=== PATIENT | female | born 1995 | race Caucasian/White ===

== ENCOUNTER → 2017-02-02 04:41 | Observation (INO) ==
--- NOTE | 2017-02-02 07:50 | Discharge Summary ---
Date of Encounter: 02/02/17 Time of Encounter: 07:53 - Discharge Diagnosis (1) 39 weeks gestation of Priority: Primary Status: Acute Comments: false labor discharge home follow up as scheduled. (2) False labor Priority: Secondary Status: Acute Comments: reactive NST baseline 125 bpm moderate variability +15x15 accels no decels noted. No cervical change - Discharge Medications Home Medications: Vit/Iron Fumarate/FA [ Tablet] 1 each PO DAILY 02/02/17 [ History] Allergies/Adverse Reactions: Allergies No Known Allergies Allergy (Verified 02/02/17 01:53) Date of admission: 02/02/17 01:35 Discharging clinician: Tika Cortez Anticipated date of discharge: 02/02/17 - Patient Status Disposition: Home, Self-Care Condition: Good Functional capacity at discharge: independent ambulation - Discharge Instructions Follow Up With: Mallorie Chavez MD [Partnered Physician] - Additional Instructions: LABOR AND DELIVERY DISCHARGE INSTRUCTIONS Signs and Symptoms to be Reported to your Doctor Immediately: * Sudden gush, continuous or intermittent lead of fluid from vagina (note the time of gush and color of fluid) * Onset of bright red vaginal bleeding with or without pain (if you had a vaginal exam during this visit you may notice some dark red spotting. This is normal.) * Contractions that are 5 minutes apart (from the beginning of one contraction to the beginning of the next) and last 45-60 seonds; contractions that you can no longer walk, talk or laugh through. * A change in the baby's activity. This could be an increase or decrease in activity. * Severe headache which does not go away with tylenol. * Sudden swelling in the face, hands, arms and/or legs. * Upper abdominal pain - sometimes associated with heartburn or nausea and is not relieved by Maalox, Mylanta or Tums. * Kick Counts __ One hour after a meal, lay down on one side in a quiet place. Count the number of time the baby moves during an hour. 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 Time Attestation: Total time spent providing and/or coordinating discharge services: Time Spent: Less than 30 minutes Exam - Other Additional findings: Patient was seen and assessed by RN. Patient reported regular contractions. Patient denies LOF or VB. Patient reported +FM. - VTE Reasons for not Prescribing Prophylaxis: Treatment not Indicated - Low risk for VTE
== END | disposition home or self-care (01) ==
LOC: 1NENULAB
PROVIDERS: ADMIT Advanced Practice Midwife; ATTEND Obstetrics & Gynecology

== ENCOUNTER 2017-02-06 02:46 | Inpatient (IN) ==
[2017-02-06] MEDS ORDERED: Metoclopramide 10 MG/2 ML VIAL IVP PRN (02:54)
[2017-02-06] MEDS ORDERED: Naloxone 0.4 MG/ML INJ IVP PRN (02:54)
[2017-02-06] MEDS ORDERED: Famotidine 20 MG/2 ML VIAL IVP PRN (02:54)
[2017-02-06] MEDS ORDERED: Ondansetron 4 MG/2 ML VIAL IVP PRN (02:54)
[2017-02-06] MEDS ORDERED: Penicillin G Potassium 5,000,000 UNIT in D5% in Water (Mini-Bag+) 100 ML IVPB ONE (02:54)
[2017-02-06] MEDS ORDERED: Ringers Solution, Lactated 1,000 ML IVC SCH (03:00)
[2017-02-06 03:24] LABS: Basophils # 0.1 K/mcL (0.0-0.2); Basophils % 0.6 %; Eosinophils # 0.2 K/mcL (0.0-0.6); Eosinophils % 1.4 %; Hematocrit 37.9 % (35.3-44.9); Hemoglobin 13.1 g/dL (11.5-15.4); Immature Granulocytes % 1.4 % (0-4); Lymphocytes # 2.4 K/mcL (0.6-4.6); Lymphocytes % 19.8 %; Mean Corpuscular HGB Conc 34.6 g/dL (31.6-35.5); Mean Corpuscular Hemoglobin 30.9 pg (28.0-33.3); Mean Corpuscular Volume 89.4 fL (83.0-100.0); Mean Platelet Volume 9.5 fL (9.4-12.4); Monocytes # 1.1 K/mcL (0.0-1.3); Monocytes % 9.5 %; Platelet Count 181 K/mcL (140-400); Red Blood Count 4.24 M/mcL (3.82-4.97); Red Cell Distribution Width 12.8 % (11.5-14.5); Segmented Neutrophils % 67.3 %
[2017-02-06] MEDS ORDERED: *HR* Nalbuphine 20 MG/ML AMPUL IVP PRN (03:32)
[2017-02-06] MEDS ORDERED: *HR* Nalbuphine 20 MG/ML AMPUL ONE (03:32)
[2017-02-06] MEDS ORDERED: *HR* Ropivacaine/PF 0.2% 10 ML AMPUL ONE (03:44)
[2017-02-06] MEDS ORDERED: *HR* FentaNYL (PF) 100 MCG/2 ML VIAL ONE (03:44)
[2017-02-06] MEDS ORDERED: Epidural Premix (fent/bupiv) 110 ML EP ONE (03:45)
--- NOTE | 2017-02-06 04:46 | Anesthesia Evaluation PreOp ---
Date of Encounter: 02/06/17 Time of Encounter: 03:51 - Past History Planned Operation: DAVI Cardiac History: Denies any Significant Hx Pulmonary History: Denies Any Significant HX COIN COLLECTOR History: Denies Any Significant HX Other Medical History: Denies Any Significant HX Anesthesia History: No Prior Anesthetic Complications (previous DAVI x 3; denies h/o complications w/ GA or NA; denies family h/o anesthesia complications), Past Anesthesia : Yes Test: Positive Alcohol Use: none Drug use: none Medications and Allergies Vit/Iron Fumarate/FA [ Tablet] 1 each PO DAILY 02/02/17 [ History] Allergies No Known Allergies Allergy (Verified 02/02/17 01:53) - Meds/Allergy Pre-op Review Medications Reviewed: Yes Allergies Reviewed: Yes Beta Blockers on Current Med List: No Anesthesia Results - Labs 02/06/17 03:10 Anesthesia Exam 138/75, HR109, RR16 Height: 1.65m Weight: 107.5kg NPO (# of Hours): solids > 8hr Pain Scale: 10 Pain Scale Used: Numeric (1 - 10) - HEENT Pupil (Motor): Pupils equal Mallampati: II Teeth: Normal Oral Opening: Greater than 3 - COIN COLLECTOR LOC: Oriented COIN COLLECTOR Motor: Normal RUE, Normal LUE, Normal RLE, Normal LLE, Normal Face COIN COLLECTOR Sensory: Normal: RUE, LUE, RLE, LLE, Face - Cardiac Rhythm: Regular Murmur: None - Pulmonary Breath Sounds: bilateral Clear Respiratory Effort: Symmetrical Anesthesia Assess/Plan ASA Score: 2 Modified Putney Scale for Level of Consciousness: Anixous, agitated or restless Anesthetic Plan: Regional Autologous Blood: No Monitoring Plan: Standard Monitors Recovery Plan: Other
[2017-02-06] MEDS ORDERED: *HR* FentaNYL (PF) 100 MCG/2 ML VIAL EP ONE (04:50)
[2017-02-06] MEDS ORDERED: *HR* Ropivacaine/PF 0.2% 10 ML AMPUL EP ONE (04:50)
--- NOTE | 2017-02-06 04:50 | Anesthesia Procedures ---
Date of Encounter: 02/06/17 Time of Encounter: 04:48 Procedures: Anesthesia - Epidural/Spinal Patient ID/Chart reviewed: Yes Patient examined: Yes OB Eval: Gestational age: 39 weeks 4 days OB Eval: : 4 OB Eval: Hx Para: 3 OB Eval: Dilated at (cm): 5 OB Eval: Contractions: Non-stressed pattern Consent Obtained: Yes Supplemental Oxygen: None/Room Air Site Prep: Aseptic Technique, Sterile prep and drape, Povidone-Iodine 1% Patient position: upright Local Anesthetic: Lidocaine 1% Amount of Local Anesthetic used: 8 Touhy Needle Gauge: 18 Touhy Needle Depth (cm): 7 Catheter Depth at Skin (cm): 12 Test Dose (1.5% Lido + Epi): Volume given (mls): 5 Test Dose Result: Negative Loading Dose: Fentanyl (mcg): 100 Loading Dose: Other: ropivicaine 0.2% 5mL Loading Dose Administered: Thru Catheter Infusion Med: 0.125% Bupivacaine w/ 2 mcg/ml Fentanyl Infusion Rate (mls/hr): 14 (w/ demand bolus of 4mL q20min PRN) Catheter Secured in Place: Tegaderm, Tape Interspace Used: L4-L5 Loss of Resistance (JEANNA): Yes Blood: No CSF: No Paresthesia: No Vitals + FHT's: please see Abril STILL's electronic documentation
[2017-02-06] MEDS ORDERED: Oxytocin 20 units/ LR 1000 mL 20 UNIT/1,000 ML BAG IVC ONE ×2 (04:59→08:26)
[2017-02-06] MEDS ORDERED: Epidural Premix (fent/bupiv) 110 ML EP SCH (05:00)
--- NOTE | 2017-02-06 06:23 | OB/GYN History & Physical ---
Date of Encounter: 02/06/17 Time of Encounter: 06:20 Assessment and Plan (1) and not yet delivered in third trimester Current visit: Yes Status: Acute (2) Active labor at term Current visit: Yes Status: Acute Anticipate normal spontaneous vaginal delivery (3) Spontaneous rupture of membranes Current visit: Yes Status: Acute (4) Positive GBS test Current visit: Yes Status: Acute will start antibiotics (5) 39 weeks gestation of Current visit: No Status: Acute History of Present Illness HPI: Ms. Davila is a 21 year old female 4 para 3 at 39-4/7 weeks who presented to labor and delivery in active labor with spontaneous rupture membranes. Patient had called yesterday stating she was having some vaginal spotting and contractions again low but more comfortable. Patient was advised to stay home until she did not tolerate them. Patient states she went to bed had a gush of fluid and then contractions became significantly intense. Upon arrival to labor and delivery patient was nitrazine negative however she was 5 cm. Patient was getting more uncomfortable and while getting epidural she had another gush of fluid. Patient GBS status is positive penicillin was started she is Rh+ rubella positive. Past Med Surg Social Fam HX - Past Medical History Medical history: no medical history Psychiatric history: no psych history - Past Surgical History Surgical History: other (Tonsils and adenoids) - Social History Smoking Status: Never smoker Smokeless Tobacco Status: No Alcohol use: none Drug use: none Occupational status: unemployed Current living situation: Home - Independent Recent Out of Country Travel Within the Last 8 Weeks: No Exposure or Possible Exposure to Illness During Travel: No - Family History Mother Living Status: Age at : 36 Cause of : drug OD Hx Family Cardiac Disorders: Yes (HTN) Hx Family Respiratory Disorders: Yes (Asthma) Hx Family Cancer: No Hx Family GI Disorders: No Hx Family Genitourinary Disorders: No Hx Family Endocrine Disorder: No Hx Family Musculoskeletal Disorders: No Hx Family Neuromuscular Disorders: No Hx Family Neurologic Disorders: No Hx Family HEENT Disorders: No Hx Family Autoimmune Disorders: No Hx Family Reproductive Disorders: No Hx Family Psychosocial Disorders: No Hx Family Medical Disorders: No - Additional Family History Additional family history: Family history noncontributory Obstetrical History - Pregnancies : 4 Para: 3 Term: 3 Livin Medications and Allergies Vit/Iron Fumarate/FA [ Tablet] 1 each PO DAILY 02/02/17 [ History] Allergies No Known Allergies Allergy (Verified 02/02/17 01:53) Review of System OB All systems PM: reviewed and no additional remarkable complaints except as stated Exam - Constitutional Constitutional: well developed, well nourished, no acute distress, mild distress , obese - HEENT HEENT: EOMI, PERRL - Neck Neck exam: full ROM - Lungs Respiratory exam: CTAB - Abdomen Abdomen: Present: bowel sounds normal, gravid - Cervix Dilation: 5 Effacement: 90 Station: -1 Results Result Diagrams: 02/06/17 03:10 Abnormal lab results WBC 11.9 K/mcL (4.3-11.1) H 02/06/17 03:10 All other labs normal. - VTE Reasons for not Prescribing Prophylaxis: Treatment not Indicated - Low risk for VTE
--- NOTE | 2017-02-06 06:30 | OB/GYN Procedure Note ---
Delivery - Delivery Date: 02/06/17 Provider: Reza Salazar Intrapartum events: none Delivery induction: none Delivery monitor: external FHT, external uterine Anesthesia: epidural Estimated Blood Loss: 100 - Infant (s) Infant A Infant Delivery Date: 02/06/17 Infant Delivery Time: 06:05 Presentation: vertex Position: GLENIS Route of delivery: Gender: Female Viability: Viable Pounds: 8 Ounces: 4 Weight Gram: 3.745 kg at 1 minute: 8 at 5 mins: 9 Shoulder Dystocia: not encountered Specimens collected: cord blood Placenta: spontaneous Cord: 3 umbilical vessels - Repair Episiotomy: none Laceration Description: None - Complications Delivery complications: none Delivery comments: Patient is a 21-year-old 4 para 3 at 39-4/7 weeks who presented to labor and delivery in active labor with spontaneous rupture membranes. Patient was 5 cm on admission ash every 2 minutes. Patient did receive an epidural and antibiotics for group B strep positive. Patient progressed to complete patient pushed 1-3 times delivering a viable female in right occiput anterior presentation at 0605. There was no nuchal cord, no meconium, was bulb suctioned on the abdomen. Apgars were 8 at 1 minute, 9 at 5 minutes, weight was 8 lbs. 4 oz. Placenta was then delivered spontaneously with a three-vessel cord, business office associate at [place], anesthesia epidural, estimated blood loss 100 mL. Perineum cervix and vagina was visualized intact. Patient will be observed 2 hours before being taken floor. All needles and sponge counts were correct 2. - Disposition Mom disposition: stable in LDR [place] disposition: stable in LDR
[2017-02-06] MEDS ORDERED: Penicillin G Potassium 2,500,000 UNIT in D5% in Water 100 ML IVPB SCH (07:00)
[2017-02-06] MEDS ORDERED: Oxytocin 20 units/ LR 1000 mL 20 UNIT/1,000 ML BAG IVC SCH (08:51)
[2017-02-06] MEDS ORDERED: Measles/Mumps/Rubella Vacc 0.5 ML VIAL SQ PRN (08:51)
[2017-02-06] MEDS ORDERED: Acetaminophen 325 MG TABLET PO PRN (08:51)
[2017-02-06] MEDS ORDERED: Prenatal Vit/FA 1 EACH TABLET PO SCH (09:00)
[2017-02-06] MEDS ORDERED: NON-FORMULARY MEDICATION 1 EACH EACH (Prenatal Vit/Iron Fumarate/Fa [Prenatal Tablet] 1 EA PO SCH (09:00)
[2017-02-07] MEDS: Ibuprofen 600 MG TABLET PO PRN ×2 (02:36→11:06)
[2017-02-07 04:43] LABS: Basophils # 0.1 K/mcL (0.0-0.2); Basophils % 0.6 %; Eosinophils # 0.2 K/mcL (0.0-0.6); Eosinophils % 1.5 %; Hematocrit 33.6 % (35.3-44.9); Hemoglobin 11.6 g/dL (11.5-15.4); Immature Granulocytes % 1.4 % (0-4); Lymphocytes # 2.3 K/mcL (0.6-4.6); Lymphocytes % 19.3 %; Mean Corpuscular HGB Conc 34.5 g/dL (31.6-35.5); Mean Corpuscular Hemoglobin 31.4 pg (28.0-33.3); Mean Corpuscular Volume 91.1 fL (83.0-100.0); Mean Platelet Volume 9.3 fL (9.4-12.4); Monocytes # 1.1 K/mcL (0.0-1.3); Monocytes % 9.5 %; Platelet Count 120 K/mcL (140-400); Red Blood Count 3.69 M/mcL (3.82-4.97); Segmented Neutrophils % 67.7 %
[2017-02-07 07:35] VITALS: BP 116/75
--- NOTE | 2017-02-07 08:13 | Discharge Summary ---
Date of Encounter: 02/07/17 Time of Encounter: 08:10 - Discharge Diagnosis (1) (spontaneous vaginal delivery) Priority: Primary (Patient reports things are going well so far and that she is ready to go home. Patient reports pain is well controlled with motrin. Bleeding has decreased to "like a menstrual period" per patient. Patient reports she will be primarily bottle feeding. Denies any other complaints.) Status: Acute - Discharge Medications Prescriptions: Ibuprofen [Motrin] 600 mg PO Q6HR PRN #60 tablet PRN Reason: Cramping Docusate [Colace] 100 mg PO BID #60 capsule Home Medications: Vit/Iron Fumarate/FA [ Tablet] 1 each PO DAILY 02/02/17 [ History] Docusate [Colace] 100 mg PO BID #60 capsule 02/07/17 [Rx] Ibuprofen [Motrin] 600 mg PO Q6HR PRN #60 tablet 02/07/17 [Rx] Allergies/Adverse Reactions: Allergies No Known Allergies Allergy (Verified 02/02/17 01:53) Data Procedures and tests throughout hospitalization: Laboratory Tests 02/06/17 02/06/17 02/07/17 03:00 03:10 04:14 WBC 11.9 H 11.8 H RBC 4.24 3.69 L Hgb 13.1 11.6 D Hct 37.9 33.6 L MCV 89.4 91.1 MCH 30.9 31.4 MCHC 34.6 34.5 RDW 12.8 13.0 Plt Count 181 120 L MPV 9.5 9.3 L Immature Gran % 1.4 1.4 Seg Neutrophils % 67.3 67.7 Lymphocytes % 19.8 19.3 Monocytes % 9.5 9.5 Eosinophils % 1.4 1.5 Basophils % 0.6 0.6 Neutrophils # 8.0 8.0 Lymphocytes # 2.4 2.3 Monocytes # 1.1 1.1 Eosinophils # 0.2 0.2 Basophils # 0.1 0.1 Specimen Rejected Clotted Labs on day of discharge: Labs from last 24 hours 02/07/17 04:14 WBC 11.8 H RBC 3.69 L Hgb 11.6 D Hct 33.6 L MCV 91.1 MCH 31.4 MCHC 34.5 RDW 13.0 Plt Count 120 L MPV 9.3 L Immature Gran % 1.4 Seg Neutrophils % 67.7 Lymphocytes % 19.3 Monocytes % 9.5 Eosinophils % 1.5 Basophils % 0.6 Neutrophils # 8.0 Lymphocytes # 2.3 Monocytes # 1.1 Eosinophils # 0.2 Basophils # 0.1 Date of admission: 02/06/17 02:46 Consults: 02/06/17 08:51 Consult to [employer] Fabricator [CONS] Routine Comment: Vaginal delivery, consult needed Discharging clinician: Carla Marin Anticipated date of discharge: 02/07/17 - Patient Status Disposition: Home, Self-Care Condition: Good Functional capacity at discharge: independent ambulation Overall status at discharge: patient is back to baseline - Discharge Instructions Hospital Course Reason for admission: active labor Delivery: Episiotomy: none Laceration: none Other procedures: none complications: none Discharge diagnosis: IUP at term delivered [place] baby: female Hospital course: - Delivery Date: 02/06/17 Provider: Reza Salazar Intrapartum events: none Delivery induction: none Delivery monitor: external FHT, external uterine Anesthesia: epidural Estimated Blood Loss: 100 - Infant (s) Infant A Delivery Date: 02/06/17 Infant Delivery Time: 06:05 Presentation: vertex Position: GLENIS Route of delivery: Gender: Female Viability: Viable Pounds: 8 Ounces: 4 Weight Gram: 3.745 kg at 1 minute: 8 at 5 mins: 9 Shoulder Dystocia: not encountered Specimens collected: cord blood Placenta: spontaneous Cord: 3 umbilical vessels - Repair Episiotomy: none Laceration Description: None - Complications Delivery complications: none - Disposition Mom disposition: home, day 1, with baby [place] disposition: home with mother, bottle feeding per mother Time spent discussing smoking cessation with patient: 3 to 10 minutes Time Attestation: Total time spent providing and/or coordinating discharge services: Time Spent: Less than 30 minutes Exam - Constitutional Vitals: Temp Pulse Resp BP Pulse Ox 97.8 F 77 16 116/75 98 02/07/17 07:35 02/07/17 07:35 02/07/17 07:35 02/07/17 07:35 02/07/17 02:38 General appearance IM: cooperative, A&O X 3, no acute distress - Respiratory Respiratory exam: Present: CTAB - Cardiovascular Cardiovascular exam IM: Present: RRR, +S1, +S2 - GI/Abdominal GI/Abdominal exam IM: normal bowel sounds, soft - Rectal Rectal exam: deferred - Uterine Tone: Firm Uterus Position: 2 Fingers Below Umbilicus - Extremities Exam Extremities exam IM: Present: full ROM, normal capillary refill, normal inspection - Neurological Exam Neurological exam: alert, normal gait, oriented X3, reflexes normal, strengths equal and symetr throughout - Psychiatric Additional comments: Pt reports good mood.
== END 2017-02-07 11:12 | disposition home or self-care (01) | DRG 560 ==
LOC: 1NENULAB 02:46 → 1NENUOBS 08:52
PROVIDERS: ADMIT Obstetrics & Gynecology; ATTEND Obstetrics & Gynecology